=== PATIENT | male | born 1950 | race Caucasian/White ===

== ENCOUNTER 2018-08-04 20:38 | Emergency (ER) | payer OTHER, MEDICARE, MEDICAID ==
[~2018-08-04] VITALS: Ht 182.9 cm; Wt 127.0 kg
[~2018-08-04 20:38] MED LIST: AMBIEN 10 MG TA10 MG PO; ASA5UEC; FLEXERIL PO; GLUCOPHAGE850 MG PO; JANUVIA PO; LISINOPRIL10 MG PO; NORCO 5-325 TA1 EACH PO; PRINIVIL; PROZAC 20 MG20 MG PO; REQUIP 1 MG TABL1 M1 PO; VITAMINC500; XANAX1 MG PO
[2018-08-04] MEDS ORDERED: ONDANSETRON HCL4 M2 PO (20:49)
[2018-08-04] MEDS ORDERED: ROBAXIN 750 MG750 M1 PO (21:46)
[2018-08-04 21:56] VITALS: BP 152/80
== END 2018-08-04 21:56 | disposition home or self-care (01) ==
LOC: M.ERS 20:38
DX: S16.1XXA Strain of muscle, fascia and tendon at neck level, initial encounter (principal); E11.9 Type 2 diabetes mellitus without complications; G25.81 Restless legs syndrome; I10 Essential (primary) hypertension; E78.00 Pure hypercholesterolemia, unspecified; F32.9 Major depressive disorder, single episode, unspecified; F17.210 Nicotine dependence, cigarettes, uncomplicated; Z85.07 Personal history of malignant neoplasm of pancreas; Z88.1 Allergy status to other antibiotic agents; Z88.8 Allergy status to other drugs, medicaments and biological substances; V89.2XXA Person injured in unspecified motor-vehicle accident, traffic, initial encounter; Y93.89 Activity, other specified; Y92.89 Other specified places as the place of occurrence of the external cause; Y99.8 Other external cause status